=== PATIENT | female | born 1970 | race Caucasian/White ===

== ENCOUNTER 2016-08-20 08:01 | Emergency (ER) | payer BC, OTHER ==
[~2016-08-20] VITALS: Ht 154.9 cm; Wt 158.8 kg
[2016-08-20] MEDS ORDERED: NAPROSYN500 MG PO (08:45)
[2016-08-20 08:59] VITALS: BP 143/93
== END 2016-08-20 08:59 | disposition home or self-care (01) ==
LOC: ER 08:01
DX: S63.502A Unspecified sprain of left wrist, initial encounter (principal); M77.9 Enthesopathy, unspecified; Z88.5 Allergy status to narcotic agent; W18.2XXA Fall in (into) shower or empty bathtub, initial encounter; Y93.89 Activity, other specified; Y92.89 Other specified places as the place of occurrence of the external cause; Y99.9 Unspecified external cause status